=== PATIENT | female | born 1960 | race Caucasian/White ===

== ENCOUNTER → 2016-08-24 | Outpatient (CLI) | payer OTHER | LOC: FIMAGING 13:53 | PROVIDERS: ATTEND Physician Assistant | DX: Z12.31 Encounter for screening mammogram for malignant neoplasm of breast (principal); C56.9 Malignant neoplasm of unspecified ovary | CPT/HCPCS: G0202 ==

== ENCOUNTER → 2017-11-01 | Outpatient (CLI) | payer OTHER | LOC: FIMAGING 13:47 | PROVIDERS: ATTEND Internal Medicine Hematology & Oncology | DX: R22.32 Localized swelling, mass and lump, left upper limb (principal) ==

== ENCOUNTER → 2018-05-28 | Outpatient (CLI) | payer OTHER | LOC: FIMAGING 11:25 | PROVIDERS: ATTEND Nurse Practitioner | DX: M79.604 Pain in right leg (principal) ==

== ENCOUNTER → 2018-06-28 | Outpatient (CLI) | payer OTHER ==
[~2018-06-28] MED LIST: IOPAMIDOL (ISOVUE 370) 100 ML BTL IV ONE
== END ==
LOC: FIMAGING 09:53
PROVIDERS: ATTEND Internal Medicine Hematology & Oncology
DX: I87.1 Compression of vein (principal); J90 Pleural effusion, not elsewhere classified; C56.9 Malignant neoplasm of unspecified ovary; Z95.818 Presence of other cardiac implants and grafts
CPT/HCPCS: 82565-PO; Q9967

== ENCOUNTER → 2018-06-29 | Outpatient (CLI) | payer OTHER ==
[~2018-06-29] MED LIST changes: -IOPAMIDOL (ISOVUE 370) 100 ML BTL IV ONE; +LIDOCAINE 1% 300 MG/30 ML SDV ONE
== END ==
LOC: FIMAGING 11:39
PROVIDERS: ATTEND Nurse Practitioner
PROC: 0W9B3ZZ Drainage of Left Pleural Cavity, Percutaneous Approach (ICD-10-PCS; principal; 2018-06-29)
DX: J90 Pleural effusion, not elsewhere classified (principal)

== ENCOUNTER 2018-08-13 17:33 | Inpatient (IN) | payer OTHER | END 2018-08-16 11:15 | disposition home or self-care (01) | LOC: F1N 17:33 ==

== ENCOUNTER → 2018-08-13 | Outpatient (CLI) | payer OTHER | LOC: FIMAGING 12:39 → F3E 16:20 ==

== ENCOUNTER 2018-08-20 12:57 | Inpatient (IN) | payer OTHER | END 2018-08-23 12:35 | disposition hospice, home (50) | LOC: F1N 12:57 ==

== ENCOUNTER → 2018-09-06 | Outpatient (CLI) | payer OTHER | LOC: FIMAGING 11:32 ==